=== PATIENT | male | born 1955 | race Caucasian/White ===

== ENCOUNTER → 2021-06-18 15:39 | Outpatient (CLI) | payer MEDICARE, OTHER, SELFPAY ==
--- NOTE | ~2021-06-18 | XR_ITS ---
EXAMINATION: XR toe 2nd RT min 2V DATE: 06/18/2021 16:08 INDICATION: Right toe ulcer at the right second toe TECHNIQUE: Dorsal plantar, lateral andfacet oblique views of the right second toe were obtained. COMPARISON: None FINDINGS: Bone alignment is normal. No fracture. Joint spaces are normal. Ulceration at the lateral tip of the right second toe. No underlying irregular erosion or periosteal reaction to suggest osteomyelitis. IMPRESSION: No osseous abnormality. Reviewed, dictated and finalized at location A. IMPRESSION: No osseous abnormality.
== END ==
PROVIDERS: Visit Provider Podiatrist Foot & Ankle Surgery
DX: L97.519 Non-pressure chronic ulcer of other part of right foot with unspecified severity (principal)
CPT/HCPCS: 73660

== ENCOUNTER 2024-05-10 17:27 | Emergency (ER) | payer MEDICARE, OTHER, SELFPAY ==
[2024-05-10] VITALS (14 sets, daily range): BP systolic 167–194; BP diastolic 74–110; PULSE 99–111; RESP 14–39; TEMP 37.1–38.3; O2SAT 92–98
--- NOTE | ~2024-05-10 | XR_ITS ---
EXAMINATION: XR chest 2V Exam Date/Time: 05/10/2024 21:12 CDT HISTORY: shortness of breath, dizziness, nausea, fever x today Comparison: 07/20/2014. RESULT: Lines, tubes, and devices: Sternotomy wires, altered pattern likely indicative of interval surgery. Several wire fragments remain over the midline chest. Left chest pacer/AICD with intact leads in good position. Lungs and pleura: Mild diffuse interstitial opacities. No pneumothorax, effusion, or focal consolida tion. Cardiomediastinal silhouette: Stable. Other: No acute osseous or upper abdominal finding. IMPRESSION: Mild interstitial edema. Reviewed, dictated and finalized at location K. IMPRESSION: Mild interstitial edema.
[2024-05-10 18:40] LABS: Basophils Absolute Auto 0.1 K/mm3 (0.0-0.1); Basophils Percent Auto 1.2 % (0.2-1.2); Eosinophils Absolute Auto 0.1 K/mm3 (0-0.3); Eosinophils Percent Auto 0.8 % (0-4.4); Hematocrit 51.3 % (42.0-52.0); Hemoglobin 17.6 g/dL (14.0-18.0); Immature Granulocyte Absolute 0.05 K/mm3 (0.00-0.031); Immature Granulocyte Percent A 0.6 % (0-0.5); Lymphocytes Absolute Auto 0.82 K/mm3 (0.9-3.2); Lymphocytes Percent Auto 10.6 % (18.3-44.2); Mean Corpuscular HGB Conc 34.3 g/dl (32-36); Mean Corpuscular Hemoglobin 31.5 pg (26-34); Mean Corpuscular Volume 91.9 fl (80-100); Mean Platelet Volume 9.3 fl (7.4-10.4); Monocytes Absolute Auto 0.8 K/mm3 (0.1-0.6); Monocytes Percent Auto 10.7 % (2.6-8.5); Neutrophils Absolute Auto 5.9 K/mm3 (1.3-6.7); Neutrophils Percent Auto 76.1 % (45.5-73.1); Platelet Count Result 222 k/mm3 (150-375); Red Blood Count 5.58 M/mm3 (4.6-6.20); Red Cell Distribution Width 13.4 % (11.5-14.5); White Blood Count 7.7 K/mm3 (4.5-10.0)
[2024-05-10 18:51] LABS: Alanine Aminotransferase 26 U/L (6-50); Albumin Level 5.4 g/dL (3.5-5.1); Alkaline Phosphatase 34 U/L (38-126); Anion Gap 13 mmol/L (4-12); Aspartate Amino Transferase 39 U/L (17-59); Bilirubin,Total 0.8 mg/dL (0.2-1.3); Blood Urea Nitrogen 13 mg/dL (9-20); Calcium 10.2 mg/dL (8.4-10.2); Carbon Dioxide 25 mmol/L (22-30); Chloride 103 mmol/L (98-107); Estimated CRCL calculation 77 ml/min; Estimated Glomerular Filt Rate > 60; Glucose 130 mg/dL (65-110); Lipase 71 U/L (23-300); Potassium 4.1 mmol/L (3.4-5.0); Sodium 141 mmol/L (137-145)
--- NOTE | 2024-05-10 18:58 | ED.FEVER ---
HPI - Fever General Chief Complaint: Fever Stated Complaint: n/V Time Seen by Provider: 05/10/24 18:53 Related Data Allergies Allergy/AdvReac Type Severity Reaction Status Date / Time No Known Allergies Allergy Unverified 07/20/14 15:43 Course Vital Signs Vital signs: Vital Signs Temperature 99.2 F 05/10/24 17:29 Pulse Rate 104 H 05/10/24 17:29 Respiratory Rate 14 05/10/24 17:29 Blood Pressure 177/98 H 05/10/24 17:29 Pulse Oximetry 94 05/10/24 17:29 Oxygen Delivery Room Air 05/10/24 17:29 Temperature 99.2 F 05/10/24 17:29 Pulse Rate 104 H 05/10/24 17:29 Respiratory Rate 14 05/10/24 17:29 Blood Pressure 177/98 H 05/10/24 17:29 Pulse Oximetry 94 05/10/24 17:29 Oxygen Delivery Room Air 05/10/24 17:29 MDM - Fever Lab Data 05/10/24 18:35 05/10/24 18:35 Labs: Lab Results 05/10/24 Range/Units 18:35 WBC 7.7 (4.5-10.0) K/mm3 RBC 5.58 (4.6-6.20) M/mm3 Hgb 17.6 (14.0-18.0) g/dL Hct 51.3 (42.0-52.0) % MCV 91.9 (80-100) fl MCH 31.5 (26-34) pg MCHC 34.3 (32-36) g/dl RDW 13.4 (11.5-14.5) % Plt Count 222 (150-375) k/mm3 MPV 9.3 (7.4-10.4) fl Immature Gran % (Auto) 0.6 H (0-0.5) % Neut % (Auto) 76.1 H (45.5-73.1) % Lymph % (Auto) 10.6 L (18.3-44.2) % [place] % (Auto) 10.7 H (2.6-8.5) % Eos % (Auto) 0.8 (0-4.4) % Baso % (Auto) 1.2 (0.2-1.2) % Lymph # (Auto) 0.82 L (0.9-3.2) K/mm3 [place] # (Auto) 0.8 H (0.1-0.6) K/mm3 Eos # (Auto) 0.1 (0-0.3) K/mm3 Baso # (Auto) 0.1 (0.0-0.1) K/mm3 Abs Immat Gran (auto) 0.05 H (0.00-0.031) K/mm3 Absolute Neuts (auto) 5.9 (1.3-6.7) K/mm3 Absolute Nucleated RBC 0.000 (0.0-0.012) K/mm3 Nucleated RBC % 0.0 (0.0-0.2) % Sodium 141 (137-145) mmol/L Potassium 4.1 (3.4-5.0) mmol/L Chloride 103 (98-107) mmol/L Carbon Dioxide 25 (22-30) mmol/L Anion Gap 13 H (4-12) mmol/L BUN 13 (9-20) mg/dL Creatinine 1.00 (0.7-1.3) mg/dL Estim Creat Clear Calc 77 ml/min Estimated GFR > 60 (59 - ) Glucose 130 H (65-110) mg/dL Calcium 10.2 (8.4-10.2) mg/dL Total Bilirubin 0.8 (0.2-1.3) mg/dL AST 39 (17-59) U/L ALT 26 (6-50) U/L Alkaline Phosphatase 34 L (38-126) U/L Total Protein 9.0 H (6.3-8.2) g/dL Albumin 5.4 H (3.5-5.1) g/dL Lipase 71 (23-300) U/L Influenza A (RT-PCR) Pending Influenza B (RT-PCR) Pending RSV (RT-PCR) Pending SARS-CoV-2 RNA (RT-PCR) Pending Discharge Plan Discharge Follow-up/Referrals: UNKNOWN,DOCTOR [Primary Care Provider] -
--- NOTE | 2024-05-10 18:59 | ED.GENADULT ---
HPI - General Adult General Chief complaint: Fever Stated complaint: n/V Time Seen by Provider: 05/10/24 18:53 History of Present Illness HPI narrative: Patient is a 69-year-old male with history of coronary artery disease, multiple MIs, most recently in 2019, 2 separate CABGs, Pacemaker and defibrillator in place here with nausea, dry heaves, chills, shortness of breath that began around 2:00 a.m. this morning. Patient notes that he has taken 1 dose of Tylenol this morning but did not take his afternoon dose that he typically takes in addition to not taking any of his afternoon medications. He has been lying around at home having significant chills as well as dry heaves. He denies any chest pain Today. He is an active smoker, denies any inhaler use, does use a CPAP at night. His has been sick with similar symptoms, she works at a hospital and believes her symptoms began 1st and have largely resolved. He notes that he has put on a few extra lbs from his baseline water weight. Denies any abdominal pain or diarrhea. Denies any episodes of vomiting. Related Data Allergies Allergy/AdvReac Type Severity Reaction Status Date / Time No Known Allergies Allergy Unverified 07/20/14 15:43 Review of Systems Review of Systems: All systems reviewed & are unremarkable except as noted in HPI and below Exam Narrative: GENERAL: Well-appearing, well-nourished, and in no acute distress. HEAD: Normocephalic, atraumatic. EYES: PERRLA and EOMI. ENT: Nares clear. Mucous membranes moist. NECK: Supple. CHEST: Bilateral wheeze present, mild tachypnea. HEART: Tachycardic. Normal peripheral pulses. ABDOMEN: Soft, nontender, nondistended. EXTREMITIES: Normal range of motion. No edema. SKIN: Warm, dry, no rash. NEURO: No focal deficits. Alert and oriented x3. PSYCH: Normal mood and affect. Course Course Emergency Course: Chart review performed. Patient here with nausea, dry heaves, chills. Triage vitals shows HTN, Tachycardia, afebrile. No prior visits in our system. Triage protocol lab work and imaging reviewed. CBC shows no leukocytosis. CMP grossly normal with normal electrolytes, normal LFTs. He is COVID positive. Patient seen evaluated, nontoxic appearing. He is COVID positive, has been having symptoms since this morning and his recently had similar symptoms. Will do additional chest x-ray, DuoNeb, antiemetics, a cardiac workup given significant cardiac history. Remainder of lab work and imaging reviewed. Troponin normal. BNP mildly elevated at 1480, no baseline in our system for comparison. He does have a known history of coronary artery disease and heart failure. After breathing treatment patient feeling quite a bit better. Ambulatory trial and patient did not desaturate below 92%. Feels good enough to be discharged home. Will start on Paxlovid. He is unsure of his medication list, advised him to thoroughly go over his medication list with the pharmacy to ensure it is safe to take his medications with paxlovid. The results of pertinent diagnostic studies and exam findings were discussed. The patient?s provisional diagnosis and plan of care were discussed with the patient and present family. The patient and/or present family expressed understanding of the diagnosis and plan. The nurse was instructed to provide written instructions and appropriate follow-up information. The patient understands their need and responsibility to obtain additional follow-up as instructed. The risks of medications administered and prescribed were discussed with the patient and family present. Vital Signs Vital signs: Vital Signs Temperature 99.2 F 05/10/24 17:29 Pulse Rate 104 H 05/10/24 17:29 Respiratory Rate 14 05/10/24 17:29 Blood Pressure 177/98 H 05/10/24 17:29 Pulse Oximetry 94 05/10/24 17:29 Oxygen Delivery Room Air 05/10/24 17:29 Temperature 98.8 F 05/10/24 21:47 Pulse Rate 99 05/10/24 22:00 Respi
[2024-05-10 19:28] LABS: Influenza A QL RT-PCR Negative (Negative); Influenza B QL RT-PCR Negative (Negative); RSV RNA, RT-PCR Negative (Negative); SARS-CoV-2 RNA PCR Positive (Negative)
--- NOTE | 2024-05-10 19:40 | ECG_ITS ---
Test Date: 2024-05-10 19:49:26 Measurements Intervals [place] Rate: 105 P: 42 IN: 190 QRS: -32 QRSD: 141 T: 116 QT: 369 QTc: 488 Interpretive Statements SINUS TACHYCARDIA LEFT AXIS DEVIATION LEFT BUNDLE BRANCH BLOCK ABNORMAL ECG No previous ECG available for comparison Electronically Signed On 05-10-2024 20:35:44 CDT by Zaid Lynn D.O.
[2024-05-10] MEDS: IPRATROPIUM 0.5 MG/ALBUTEROL SULFATE 2.5 MG AMPUL.NEB 3 ML INHALATION (19:55)
[2024-05-10 20:14] LABS: Appearance Urine Clear (Clear); Bacteria Urine None Seen /hpf; Bilirubin Urine Negative (Negative); Blood Urine Trace (Negative); Color Urine Yellow (Yellow); Glucose Urine UA Negative (Negative); Ketones Urine Negative (Negative); Leukocyte Esterase Ur Negative LEU/UL (Negative); Nitrate Urine Negative (Negative); Non Pathogenic Casts 0-2; Protein Urine 1+ mg/dL (Negative); Specific Grav Ur 1.015 (1.001-1.035); Squamous Epithelial Cell Urine None Seen /hpf (Few); Urobilinogen Urine 0.2 mg/dL (<2.0); WBC Urine 0-5 /hpf (0-3)
[2024-05-10] MEDS: PANTOPRAZOLE SODIUM IV 40 MG VIAL IV PUSH (20:17)
[2024-05-10] MEDS: ONDANSETRON INJ 4 MG/2 ML VIAL IV PUSH (20:17)
[2024-05-10] MEDS: ACETAMINOPHEN 500 MG TABLET 1000 MG PO (20:17)
[2024-05-10 20:18] LABS: Add Urine Microscopic? YES
[2024-05-10 20:31] LABS: NT Pro B Type Natriuretic Pept 1480 pg/mL (19.9-100); Troponin I 0.021 ng/mL (0.000-0.034)
== END 2024-05-10 22:44 | disposition home or self-care (01) ==
PROVIDERS: Emergency Medicine; Emergency Provider Student in an Organized Health Care Education/Training Program; PCP Internal Medicine
DX: U07.1 COVID-19 (principal); I25.2 Old myocardial infarction; I25.10 Atherosclerotic heart disease of native coronary artery without angina pectoris; Z95.1 Presence of aortocoronary bypass graft
CPT/HCPCS: 36415; 71046; 80053; 81001; 81003; 83690; 83880; 84484; 85025; 87637; 93005; 94640; 96374; 96375; 99284; A9270; J2405; J2470

== ENCOUNTER 2025-03-24 00:21 | Day surgery (SDC) | payer MEDICARE, OTHER, SELFPAY ==
[2025-03-10 11:19] VITALS: BMI 26.5
--- NOTE | 2025-03-10 11:52 | PC.NURSE ---
Spoke with patient regarding medication Plavix & ASA. Patient verbalizes understanding that the last dose is to be taken on 03/16/2025 and the Endoscopist will instruct them when to restart after the procedure.
--- OUTSIDE RECORDS SUMMARY | 2025-03-24 00:23 | XMS_ITS | Data Portability ---
Author Organization [facility], Main Office Address [address] [place] [address] Care Team Providers Care Human Services Professional Name Role Phone SINCERE ODELL Evidence Specialist HEMALATHA HELM Primary Care Provider YASH SIERRA Incident Response Lead Assessment Encounter Date Assessment Date Assessment LastModified by Organization Details LastModified Time 06/24/2024 06/24/2024 This note is dictated and transcribed by [employer]. [employer] variances may occur. Despite proofreading, typographical errors may occur. Occasional wrong-word or 'dmrod-h-mhut' substitutions may have occurred due to the inherent limitations of voice recording. Read the chart carefully and recognize, using context, where substitutions have occurred. Not available 06/24/2024 10:07:15 09/16/2024 09/16/2024 This note is dictated and transcribed by [employer]. [employer] variances may occur. Despite proofreading, typographical errors may occur. Occasional wrong-word or 'nwpfr-c-zrzr' substitutions may have occurred due to the inherent limitations of voice recording. Read the chart carefully and recognize, using context, where substitutions have occurred. Not available 09/16/2024 14:07:26 02/08/2025 02/08/2025 This note is dictated and transcribed by [employer]. [employer] Sh[employer] variances may occur. Despite proofreading, typographical errors may occur. Occasional wrong-word or 'ysoco-i-flsj' substitutions may have occurred due to the inherent limitations of voice recording. Read the chart carefully and recognize, using context, where substitutions have occurred. Not available 02/08/2025 11:48:02 Plan of Treatment Reminders Order Date Submit Date Provider Last Modified By Organization Details Last Modified Time Details Appointments Any 15 2024 10:00A M Hemalatha Helm MD Not available Not available Not available Establish ed Patient 15 2024 09:30A M Sincere Odell DPM Not available Not available Not available Medicare Wellness 15 2024 11:00A M Hemalatha Helm MD Not available Not available Not available Lab noninvasi ve colorecta l cancer DNA + occult blood screening , QL, stool 2023 024 [facility] (Cologuard Orders Only), [address], [address], [place], [address], 08/14/2024 06:44:52 Referral None recorded. Procedures colonosco py screening (PROC) - Please call patient to schedule. 2024 025 [id number] Sarkis Feliciano MD, [address] [facility] [address], [address], [place], [address], 01/24/2025 08:57:30 Surgeries None recorded. Imaging None recorded. Medication Orders None recorded. Patient TargetsNo targets recorded. Patient Instructions Encounter Date Encounter Id Patient Instructions Last Modified By Organization Details Last Modified Time 07/29/2024 [id number] dementia rating scale-2* Not available 07/29/2024 13:05:31 alcohol misuse* Not available 07/29/2024 13:05:31 depression screening* Not available 07/29/2024 13:05:31 multi-dimensiona l health assessment questionnaire* Not available 07/29/2024 13:05:31 Personalized a lt Plan and Screening Recommendations Advance Directives - Do you have one? No You have indicated that you are capable of preparing your advance care directive Advance Directives - Do we have your advance directive on file in your health record? No, please bring in a copy at your earliest convenience Primary Prevention/Interven tion (prevents or decreases the chance of common diseases from occurring) Smoking Risk: Smoker Refer to attached smoking cessation handouts Refer to attached handouts and prescription will be sent to pharmacy Continue to consider stopping smoking and call if we can assist you Alcohol Misuse Screening: Negative Weight: Appropriate Overwei ght Physical activity: Need more exercise/physical activity minimum of 10-20 minutes of activity that causes mild breathlessness/day Nutrition: Good Average Fall Risk (screened today): Low Vaccines Pneumococcal: Influenza: Your next one in the fall of this year Chronic Disease Risks Stroke: Low Risk Intermediate Risk I have no recommendations Act lazara diagnosis, Continue current treatment plan Heart Attack: Low risk Intermediate Risk I have no recommendations Act lazara diagnosis, Continue current treatment plan Clogging of the Arteries: Low risk Intermediate Risk I have no recommendations Act lazara diagnosis, Continue current treatment plan Diabetes: Low Risk Intermediate Risk Active diagnosis, Continue current treatment plan Secondary Prevention/Interven tion (detects treatable diseases before they may cause symptoms, disability, or ) Prostate Cancer Screening: Colon Cancer Screening: Colonoscopy Fecal Occult Blood Cologuard (DNA stool test) In: Ordered Recomme nded Date Screening Last Performed: Eye Disease Screening: Ordered Recommended today Dementia Risk: Low I have no recommendations Depression Screening: Negative [email or web address] Not available 07/29/2024 11:59:06 Reason for Referral None Reported. Results Created Date Observation Date Name Description Value Unit Range Abnormal Flag Note LastModifiedBy Organization Detail LastModifiedTime 08/10/20 24 08/10/2024 COLOG UARD cologuard result reportable POSITI VE negati ve abnormal POSIT LAZARA TEST RESUL T. A posit lazara Colog uard resul t shoul d be follo wed with a colon oscop y or visua l exami natio n of the colon . The omer l value (refe rence range ) for this assay is negat lazara. TEST DESCR IPTIO N: [place] site algor ithmi c rosamaria sis of stool DNA-b iomar kers with hemog lobin immun oassa y. Quant itati ve value s of indiv idual bioma rkers are not repor table and are not assoc iated with indiv idual bioma rker resul t refer ence range s. Colog uard is inten ded for color ectal cance r scree jessika of adult s of eithe r sex, 45 years or older , who are at [facility] for color ectal cance r (CRC) . Colog uard has been appro toby for use by the U.[place]. FDA. The perfo rmanc e of Colog uard was estab lishe d in a cross secti onal study of [facility] adult s aged 50-84 . Colog uard perfo rmanc e in patie nts ages 45 to 49 years was estim ated by sub-g roup rosamaria sis of near- age group s. Colon oscop ies perfo rmed for a posit lazara resul t may find as the most clini jonathon signi fican t lesio n: color ectal cance r [4.0% ], advan rayray adeno ma (incl uding sessi le jun chele polyp s great er than or equal to 1cm diame ter) [20%] or non- advan rayray adeno ma [31%] ; or no color ectal neopl jolly [45%] . These estim ates are deriv ed from a prosp ectiv e cross -sect ional scree jessika study of 0 indiv idual s at [facility] risk for color ectal cance r who were scree fidelia with both Colog uard and colon oscop y. (Tisha Wang. et al, N Engl J Med 2014; 370(1 4):12 86-12 97.) Colog uard may produ ce a false negat lazara or false posit lazara resul t (no color ectal cance r or preca ncero us polyp prese nt at colon oscop y follo w up). A negat lazara Colog uard test resul t does not guara ntee the absen ce of CRC or advan rayray adeno ma (pre- cance r). The curre nt Colog uard scree jessika inter eddie is every 3 years . (Amer ican Cance r Socie ty and U.S. Multi -Soci ety Task Force ). Colog uard perfo rmanc e data in a 0 patie nt pivot al study using colon oscop y as the refer ence metho d can be acces sed at the follo wing locat ion: www.e xactl abs.c om/re sults . Addit ional descr iptio n of the Colog uard test proce ss, warni ngs and preca ution s can be found at www.belen douglas.belen om. Not Available [facility] (Cologuard Orders Only) [address], [place], [address], 08/14/2024 06:44:52 05/25/20 24 05/25/2024 US, duple x, venou s, lower extre mity No observ ation record ed. BARCODE Not Available 2023 18:13:52 Result Notes None recorded. 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 [id number] 199388 Active 2020 Kassandra lugo RMA null, [facility] 4 10:04:22 Hammer toe 301622141 Active 2021 Kassandra lugo RMA null, [place] [facility] 4 10:03:56 Hammer toe 896462489 Active 2020 Kassandra lugo RMA null, [place] [facility] 4 10:03:54 Acute sinusitis 77326233 Completed 202108/22/2022 Not Available [facility] 3 01:08:08 Callosity on toe 754214099 Completed 202103/29/2024 Sincere Odell DPM [address], [address], [place], [address] , [facility] [employer] [facility] 5 11:48:14 Callosity on toe 195799949 Completed 202108/22/2022 Sincere Odell DPM [address], [address], [place], [address] , [facility] 5 11:48:14 Abdominal pain 83326594 Completed Not Available [facility] 3 01:08:08 Foot callus 135142176 Completed Sincere Odell DPM [address] [facility], [address], [place], [address] , [facility] 4 10:07:20 Intractab le plantar keratoma 335780390 Completed Not Available [facility] 3 01:08:09 Osteomyel itis of ankle AND/OR foot 54021503 Active 2020 Kassandra lugo RMA null, [place] [facility] 4 10:04:32 Swallowin g painful 08689669 Completed Not Available [facility] 3 01:08:09 Hypertrig lyceridem ia 633211620 Active 2017 Kassandra lugo RMA null, [place] [facility] 4 10:04:11 Sinusitis 52504674 Completed Not Available [facility] 3 01:08:09 Periphera l vascular disease 155389028 Active 2020 Kassandra lugo RMA null, [place] [facility] 4 10:04:05 Hypothyro idism 21762454 Active 2021 Kassandra lugo RMA null, [place] [facility] 4 10:04:10 Type 2 diabetes mellitus 57926430 Active Kassandra lugo RMA null, [place] [facility] 4 10:04:27 Cough 07306939 Completed 202108/22/2022 Not Available [facility] 3 01:08:10 Coronary arteriosc lerosis 97909877 Active s/p MS, s/p CABG 2004 Not Available [facility] 3 01:08:10 Hyperlipi demia 01443417 Active Kassandra lugo RMA null, [place] [facility] 4 10:04:13 Nicotine dependenc e 18210263 Active Kassandra lugo, RMA null, [place] [facility] 4 10:04:07 Essential hypertens ion 45205473 Active Kassandra Matias n, RMA null, [place] [facility] 4 10:03:39 Verruca plantaris 62106091 Completed Not Available [facility] 3 01:08:11 Celluliti s of toe 10311884 Completed 202007/19/2021 Not Available [facility] 3 01:08:11 Diabetes mellitus 09447428 Active 2013 Not Available [facility] 3 01:08:11 Sleep apnea 08531731 Active ON CPAP since 2005 Kassandra Almendareza n, RMA null, [place] [facility] 4 10:04:20 Smoker 67091521 Active Kassandra Matias n, RMA null, [facility] 4 10:04:29 Erectile dysfuncti on 753615560 Active 2021 Not Available [facility] 3 01:08:11 Dystrophi a unguium 21418454 Completed 202103/29/2024 Kassandra Mcknightbea n, RMA null, [place] [facility] 4 10:03:59 Skin lesion 31328816 Completed 202103/29/2024 Kassandra Almendareza n, RMA null, [place] [facility] 4 10:04:23 Hammer toe 206252344 Completed 202303/29/2024 Sincere Odell DPM [address], [address], [place], [address] , [facility] 4 10:07:40 Foot callus 349169176 Active 2023 Sincere Odell DPM [address], [address], [place], [address] , [employer] 4 10:07:19 Hammer toe 416698721 Active 2023 Sincere Odell DPM [address], [address], [place], [address] , [employer] [email or web address] 4 10:07:40 Callosity on toe 908780103 Active 2024 Sincere Odell DPM [address], [address], [place], [address] , [employer] 5 11:48:14 Bilateral acquired mallet toe [id number] 032297 Active 2024 Sincere Odell DPM [address], [address], [place], [address] , [employer] [facility] [employer] 5 11:48:39 Diabetic on diet only 755509552 Active 2024 Sincere Odell DPM [address], [address], [place], [address] , [employer] 5 11:49:33 Problem Notes None recorded. Procedures Surgical History Date Name Laterality Status Provider Name and Address Organization Details Recorded Time 02/09/20 25 Nail Debridement completed Sincere Odell DPM [address], [address], [place], [address], [employer] [facility] 02/08/2025 11:47:08 02/09/20 25 Callus Debridement 2-4 completed Sincere Odell DPM [address], [address], [place], [address], [employer] [facility] [facility] 02/08/2025 11:46:14 09/16/20 24 Nail Debridement completed Sincere Odell DPM [address], [address], [place], [address], [employer] [facility] [email or web address] 09/16/2024 11:00:00 09/16/20 24 Callus Debridement 2-4 completed Sincere Odell DPM [address], [address], [place], [address], [facility] 09/16/2024 10:59:51 07/29/20 24 Medicare Wellness CPT Code, subsequent completed Chhaya Jerry RN [facility] 07/29/2024 11:45:44 06/24/20 24 Nail Debridement completed SOCORRO G[address], [place], [address], [facility] 06/24/2024 10:06:52 06/24/20 24 Callus Debridement 2-[address], [place], [address], [facility] 06/24/2024 10:06:46 02/26/20 24 Nail Debridement completed [address], [place], [address], [facility] 02/26/2024 10:05:33 11/27/19 24 Nail Debridement completed SOCORRO [address], [address], [place], [address], [facility] 11/27/2023 10:28:18 11/27/19 24 Callus Debridement 2-4 completed SOCORRO [address], [address], [place], [address], [facility] 11/27/2023 10:28:00 07/22/20 23 Nail Debridement completed SOCOR[address], [address], [place], [address], [facility] 07/22/2023 10:38:04 07/22/20 23 Callus Debridement 2-4 completed SOCORRO [address]arrison, [address], [place], [address], [facility] 07/22/2023 10:38:21 03/18/20 23 Nail Debridement completed SOCORRO G[address], [address], [place], [address], [facility] [employer] [facility] 03/18/2023 10:57:14 03/18/20 23 Callus Debridement 2-4 completed Sincere Odell DPM [address], [place], [address], [facility] [employer] [facility] 03/18/2023 10:56:53 02/07/20 21 other completed Not Available [facility] 3 00:55:45 excision of lesion of breast completed Not Available [facility] 01/08/2023 00:55:45 Rotator cuff surgery completed Not Available [facility] 01/08/2023 00:55:45 CABG completed Not Available [facility] 11/2022 00:55:45 Tonsillectomy completed Not Available [facility] 01/08/2023 00:55:45 Imaging Results Imaging Date Name Status LastModified by Organiz ation Details LastModified Time 05/25/2024 US, duplex, venous, lower extremity completed [employer] Information not available 05/25/2024 18:13:52 Procedure Notes None recorded. Medical Equipment None Reported. Allergies Allergen ID Allergen Name Allergen Category Reaction Reaction Severity Criticality Documentation Date Start Date Code Code System Note Provider Name and Address Organization Details Recorded Time 2366 spironola ctone medicatio n Not available Not available Not available 01/08/2023 9997 RxNorm benig n lumps Not Available [facility] 3 01:25:25 2367 atorvasta tin medicatio n Not available Not available Not available 01/08/2023 30198 RxNorm HYPER GLYCE MALATHI Not Available [facility] 3 01:25:25 Medications Name Sig Start Date Stop Date Status Note LastModified by Organization Details LastModified Time furosemid e 40 mg tablet TAKE 1 TABLET BY MOUTH EVERY DAY active Not Available Not Available No t Available atorvasta tin 40 mg tablet Take 1 tablet every day by oral route. 2013 active Not Available Not Available Not Avai lable metformin 500 mg tablet Take 1 tablet twice a day by oral route. 01/08 completed Not Available Not Available Not Available trazodone 50 mg tablet Take 1 tablet every day by oral route as needed. 06/25 completed Not Available Not Available Not Available azithromy arpita 250 mg tablet TAKE 2 TABLETS BY MOUTH TODAY, THEN TAKE 1 TABLET DAILY FOR 4 DAYS 10/15 completed Not Available Not Available Not Available amiodaron e 200 mg tablet TAKE 1 TABLET BY MOUTH TWICE A DAY active Not Available Not Available No t Available spironola ctone 100 mg tablet TAKE 1 TABLET(S ) EVERY DAY BY ORAL ROUTE. 06/05 completed Not Available Not Available Not Available metoprolo l succinate ER 100 mg tablet,ex tended release 24 hr TAKE 1 TABLET BY MOUTH EVERY DAY active Not Available Not Available No t Available clopidogr el 75 mg tablet TAKE 1 TABLET BY MOUTH EVERY DAY active Not Available Not Available No t Available sulfameth oxazole 800 mg-trimet hoprim 160 mg tablet TAKE 1 TABLET BY MOUTH EVERY 12 HOURS FOR 10 DAYS 10/15 completed Not Available Not Available Not Available fenofibra te micronize d 200 mg capsule TAKE 1 CAPSULE BY MOUTH EVERY DAY active Not Available Not Available No t Available aspirin 81 mg tablet,de layed release TAKE 1 TABLET BY MOUTH EVERY DAY active Not Available Not Available No t Available sildenafi l 100 mg tablet Take 1 tablet every day by oral route as needed. 06/25 completed Not Available Not Available Not Available amoxicill in 500 mg tablet Take 1 tablet 3 times a day by oral route for 7 days. active Not Available Not Available No t Available simvastat in 40 mg tablet TAKE 1 TABLET BY MOUTH EVERY DAY active Not Available Not Available No t Available levothyro xine 25 mcg tablet TAKE 1 TABLET BY MOUTH EVERY DAY 30 MINUTES BEFORE THE FIRST MEAL OF THE DAY ON AN EMPTY STOMACH 06/18 completed Not Available Not Available Not Available levothyro xine 75 mcg tablet TAKE 1 TABLET BY MOUTH EVERY DAY active Not Available Not Available No t Available levothyro xine 100 mcg tablet TAKE 1 TABLET BY MOUTH EVERY DAY active Not Available Not Available No t Available oxycodone -acetamin ophen 5 mg-325 mg tablet active Not Available Not Available Not Available amoxicill in 875 mg tablet Take 1 tablet every 12 hours by oral route for 7 days. active Not Available Not Available No t Available magnesium oxide 400 mg (241.3 mg magnesium ) tablet TAKE 1 TABLET BY MOUTH TWICE A DAY 06/18 completed Not Available Not Available Not Available amiodaron e 400 mg tablet Take 1 tablet twice a day by oral route. 02/[address] Jerry Not Available Not Available Not Available amlodipin e 10 mg tablet TAKE 1 TABLET BY MOUTH EVERY DAY active Not Available Not Available No t Available benzonata te 100 mg capsule 10/15 completed Not Available Not Available Not Available cephalexi n 500 mg capsule TAKE 1 CAPSULE BY MOUTH EVERY 6 HOURS FOR 7 days active Not Available Not Available No t Available simvastat in 20 mg tablet TAKE 1 TABLET(S ) EVERY DAY BY ORAL ROUTE FOR 90 DAYS. 09/02 completed Not Available Not Available Not Available erythromy arpita 5 mg/gram (0.5 %) eye ointment APPLY A SMALL AMOUNT TO RIGHT EYELID 3 TIMES A DAY FOR 5 DAYS. 02/20 completed Not Available Not Available Not Available metformin 1,000 mg tablet Take 1 tablet twice a day by oral route for 90 days. 01/10 completed currentl y not taking. since 08/2015 Not Available Not Available Not Available metoprolo l tartrate 50 mg tablet TAKE 1 TABLET BY MOUTH TWICE A DAY active Not Available Not Available No t Available niacin 500 mg tablet Take 4 tablets every day by oral route at bedtime. 2013 active Not Available Not Available Not Avai lable aspirin 81 mg chewable tablet Chew 1 tablet every day by oral route. active Not Available Not Available No t Available hydrochlo rothiazid e 25 mg tablet TAKE 1 TABLET BY MOUTH EVERY DAY 06/25 completed Not Available Not Available Not Available mupirocin 2 % topical ointment APPLY A SMALL AMOUNT TO THE AFFECTED toe left great toe AREA BY TOPICAL ROUTE 3 TIMES PER DAY 08/22 completed Not Available Not Available Not Available Levaquin 500 mg tablet Take 1 tablet every 24 hours by oral route. active Not Available Not Available No t Available azelastin e 137 mcg (0.1 %) nasal spray SPRAY 2 SPRAYS BY INTRANAS AL ROUTE TWICE A DAY FOR 30 DAYS 11/27 completed Not Available Not Available Not Available Septra DS 800 mg-160 mg tablet 02/19 completed Not Available Not Available Not Available methylpre dnisolone 4 mg tablets in a dose pack take as directed 10/15 completed Not Available Not Available Not Available albuterol sulfate HFA 90 mcg/actua tion aerosol inhaler INHALE 2 PUFFS 4 TIMES A DAY NEEDED FOR SHORTNES S OF BREATH OR FOR WHEEZE 02/08 completed Patient does not use Not Available Not Available Not Available diltiazem 30 mg tablet 06/18 completed Vardi Not Available Not Available Not Available irbesarta n 300 mg tablet TAKE 1 TABLET BY MOUTH EVERY DAY active Not Available Not Available No t Available amoxicill in 875 mg-potass ium clavulana te 125 mg tablet TAKE 1 TABLET BY MOUTH EVERY 12 HOURS FOR 10 DAYS 07/19 completed Not Available Not Available Not Available Asprin Ec Low Dose 81 mg tablet,de layed release Take 1 tablet every day by oral route. 11/27 completed Not Available Not Available Not Available rosuvasta tin 20 mg tablet TAKE 1 TABLET BY MOUTH EVERY DAY 06/24 completed Not Available Not Available Not Available rosuvasta tin 40 mg tablet TAKE 1 TABLET BY MOUTH EVERY DAY active Not Available Not Available No t Available Klor-Con M20 mEq tablet,ex tended release active Not Available Not Available Not Available Fish Oil 11/27 completed Not Available Not Available Not Available BD Ultra-Fin e Short Pen Needle 31 gauge x 5/16 USE QD WITH LANTUS 06/11 completed Not Available Not Available Not Available Januvia 50 mg tablet TK 1 T PO ONCE D 07/29 completed Not Available Not Available Not Available Lantus Solostar U-100 Insulin 100 unit/mL (3 mL) subcutane ous pen INJECT SQ 14 UNITS QHS 08/24 completed Not Available Not Available Not Available fenofibra te 120 mg tablet Take 1 tablet every day by oral route. 01/08 completed Not Available Not Available Not Available B12 11/27 completed Not Available Not Available Not Available Accu-Chek FastClix Lancing Device USE BEFORE MEALS AND AT BEDTIME 06/11 completed Not Available Not Available Not Available Accu-Chek SmartView Test Strips Take 1 strip every day by miscell. route for 30 days. 06/11 completed Not Available Not Available Not Available Eliquis 5 mg tablet TAKE 1 TABLET BY MOUTH TWICE A DAY 06/18 completed Vardi Not Available Not Available Not Available Entresto 24 mg-26 mg tablet 06/18 completed Vardi Not Available Not Available Not Available Paxlovid 300 mg (150 mg x 2)-100 mg tablets in a dose pack TAKE 2 TABLETS (NIRMATR ROSENDO) AND TAKE 1 TABLET (RITONAV IR) BY MOUTH TWICE A DAY FOR 5 DAYS active Not Available Not Available No t Available Vitals Date Recorded Body height Body mass index (BMI) Body weight Heart rate Systolic blood pressure Diastolic blood pressure Provider Name and Address Organization Details Last Updated DateTime 4 193.04 cm 28 kg/m2 399354. 25 g 71 /min 179 mm[Hg] 104 mm[Hg] Yi Steve [facility] [employer] [facility] 4 09:41:27 Date Recorded Body height Body mass index (BMI) Body weight Body temperature Heart rate Oxygen saturation Oxygen saturation in Arterial blood by Pulse oximetry Systolic blood pressure Diastolic blood pressure Provider Name and Address Organization Details Last Updated DateTime 4 193.04 cm 28.2 kg/m2 919404. 43 g 97 [degF] 70 /min 97 % 97 % 150 mm[Hg] 90 mm[Hg] IVANIA Werner [facility] [employer] [facility] 4 09:56:58 Date Recorded Pain severity - 0-10 verbal numeric rating [Score] - Reported Provider Name and Address Organization Details Last Updated DateTime 07/29/2024 0 Chhaya Jerry RN [facility] [employer] [facility] 07/29/2024 11:46:04 Date Recorded Body height Body mass index (BMI) Body weight Heart rate Respiratory rate Oxygen saturation Oxygen saturation in Arterial blood by Pulse oximetry Systolic blood pressure Diastolic blood pressure Provider Name and Address Organization Details Last Updated DateTime 4 193.04 cm 28.2 kg/m2 238161. 43 g 73 /min 14 /min 98 % 98 % 167 mm[Hg] 107 mm[Hg] Fidelina Poe [facility] [employer] [facility] 4 10:12:23 Date Recorded Body weight Body temperature Oxygen saturation Oxygen saturation in Arterial blood by Pulse oximetry Heart rate Systolic blood pressure Diastolic blood pressure Provider Name and Address Organization Details Last Updated DateTime 5 736280. 02 g 74 [degF] 98 % 98 % 72 /min 142 mm[Hg] 68 mm[Hg] Ankita Scott duggan [employer] 5 11:26:53 Date Recorded Body height Body mass index (BMI) Body weight Heart rate Respiratory rate Body temperature Oxygen saturation Oxygen saturation in Arterial blood by Pulse oximetry Systolic blood pressure Diastolic blood pressure Provider Name and Address Organization Details Last Updated DateTime 5 193.04 cm 28.4 kg/m2 590990. 02 g 78 /min 16 /min 98.3 [degF] 97 % 97 % 165 mm[Hg] 98 mm[Hg] Anjelica Cisneros [facility] 5 10:37:07 Social History Question Answer Notes LastModified by Organization Details LastModified Time Tobacco Smoking Status Former Smoker Not Available [employer] 01/08/2023 00:50:46 Do You Have An Advance Directive? No [email or web address] Information not available 07/29/2024 How Many Years Have You Consumed Alcohol? 48 [email or web address] Information not available 07/29/2024 Are You Blind Or Do You Have Difficulty Seeing? No [email or web address] Information not available 07/29/2024 Is Blood Transfusion Acceptable In An Emergency? Yes [email or web address] Information not available 07/29/2024 What Is Your Level Of Caffeine Consumption? Moderate [id number] Information not available 01/08/2023 How Much Tobacco Do You Chew? None [id number] Information not available 01/08/2023 In The 14 Days [id number]|2025-03-24 10:41:15|2025-03-24 10:41:15|[id number]||||"Anes - Initial Pre Proc Eval Procedure: Operation Date: 03/24/25 11:30 Proposed Procedures p Screening Colonoscopy - John Mueller MD Date/Time: 03/24/25 10:41 Surgeon: John Mueller MD Pre Op Diagnosis: Screening Patient Data Age: 70 Gender: M Height: 1.93 m Weight: 99.2 kg Last Vital Signs Temp 36.4 C 03/24/25 10:19 Pulse 74 03/24/25 10:19 Resp 20 03/24/25 10:19 BP 140/82 03/24/25 10:19 Pulse Ox 97 03/24/25 10:19 O2 Del Method Room Air 03/24/25 10:19 Allergies Allergy/AdvReac Type Severity Reaction Status Date / Time trazodone AdvReac lump Verified 03/24/25 10:17 Home Medications Medication Instructions Recorded Confirmed Type albuterol sulfate 90 mcg/actuation 2 puff inhalation QID PRN 05/10/24 03/10/25 Rx aerosol inhaler shortness of breath or wheezing #8.5 grams aspirin 81 mg chewable tablet 81 mg PO DAILY 03/10/25 03/24/25 History clopidogrel 75 mg tablet 75 mg PO DAILY 03/10/25 03/24/25 History coenzyme Q10 100 mg capsule (Co 200 mg PO DAILY 03/10/25 03/24/25 History Q-10) fenofibrate micronized 200 mg 200 mg PO DAILY 03/10/25 03/24/25 History capsule furosemide 40 mg tablet 40 mg PO DAILY 03/10/25 03/24/25 History levothyroxine 100 mcg tablet 100 mcg PO DAILY 03/10/25 03/24/25 History metoprolol tartrate 50 mg tablet 50 mg PO BID 03/10/25 03/24/25 History omega 1-rnr-xey-fish oil 1,000 mg 1 cap PO BID 03/10/25 03/24/25 History (120 mg-180 mg) capsule (Fish Oil) rosuvastatin 40 mg tablet 40 mg PO DAILY 03/10/25 03/24/25 History Patient hx anesthesia problems: none Family hx anesthesia problems: none Results Review: All pre-operative results and documents have been reviewed as part of the pre-operative evaluation. [facility] Past Medical History Medical History (Updated 03/24/25 @ 10:42 by Milton Huffman MD) Pacemaker CAD (coronary artery disease) of artery bypass graft Surgical History Surgical History (Updated 03/24/25 @ 10:42 by Milton Huffman MD) Hx of CABG Social History Social History Years smoked: 57 Smoking status: Current every day smoker Substance use type: does not use Living arrangements: with family Spiritual care concerns: No Anes - Eval Final PreProcedure Day of Procedure 03/24/25 10:41 Patient weight: obese Heart: regular rate and rhythm (paced) Lungs: clear to auscultation Airway: Mallampati scale class II Neurological: alert and oriented Last oral intake: >/= 8 hours ASA classification: IV Emergent: no Anesthetic plan: proceed Anesthesia type and monitoring: general GIVS and standard monitoring Results Review: All pre-operative results and documents have been reviewed as part of the pre-operative evaluation. Informed Consent: The patient's anesthetic plan and its attendant risks and benefits were discussed with the patient/family/POA. Questions were solicited and answers provided to the satisfaction of the patient/family/POA."
--- OUTSIDE RECORDS SUMMARY | 2025-03-24 00:23 | XMS_ITS | Clinical Summary ---
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 [employer] Name Role Phone Tavares Helm MD Primary Care Provider [phone] Genaro Brothers MD Unavailable Nadeem Jerry MD Unavailable [phone] Allergies Active Allergy Reactions Criticality Noted Date Comments Spironolactone Other (See comments) Low 11/16/2020 Developed breast lump Atorvastatin Other (See comments),Unknown Low 11/16/2020 Developed diabetes Medications aspirin 81 mg enteric coated tablet Take 81 mg by mouth daily Active cyanocobalamin (Vitamin B-12) 2,000 mcg tablet Take 6,000 mcg by mouth 2 (two) times a day Active levothyroxine sodium (TIROSINT) 25 mcg capsule Take 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 Indications: diabetes (per pt.) Active alpha lipoic acid 200 mg capsuleIndicati ons:diabetes (per pt.) Take 200 mg by mouth 2 (two) times a day. Indications: diabetes (per pt.) Active clopidogreL (PLAVIX) 75 mg tablet Take 75 mg by mouth daily Active Active Problems Problem Noted Date Diagnosed Date Coronary artery disease invo lving [place] heart without angina pectoris 11/21/2020 Overview (11/21/2020): Added automatically from request for surgery [id number] Surgical History Surgery Date Site/Laterality Comments CORONARY ARTERY BYPASS GRAFT 11/10/2004 - 11/09/2005 5 vessel ROTATOR CUFF REPAIR Left BREAST LUMPECTOMY Left FACIAL SURGERY Left metal in cheekbone VASECTOMY 11/10/1986 - 11/09/1987 HAND SURGERY Right metal removed from hand TONSILLECTOMY CARDIAC PACEMAKER PLACEMENT Left pacemaker/AICD Medical History Medical History Date Comments Hypertension Coronary artery disease Type 2 diabetes mellitus (HCC) d iet controlled Myocardial infarction (HCC) 2004 Awareness under anesthesia durin g oral surgery Sleep apnea Heart attack (HCC) 10/14/2020 Pneumonia X 3 Pleurisy Hypothyroidism Arthritis Family History Medical History Relation Name Comments Heart disease Father Heart disease Mother Heart disease Sister Relation Name Status Comments Father Mother Sister Alive Social History Tobacco Use Types Packs/Day Years Used Date Smoking Tobacco: Every Day Cigarettes Smokeless Tobacco: Never Alcohol Use Standard Drinks/Week Comments Not Currently 0 (1 standard drink = 0.6 oz pur e alcohol) Sex and Gender Information Value Date Recorded Sex Assigned at Not on file 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 Gender Identity Not on file Sexual Orientation Not on file Obstetrics History Last Filed Vital Signs Vital Sign Reading Time Taken Comments Blood Pressure 140/76 04/19/2021 12:28 PM CDT Pulse 78 04/19/2021 12:28 PM CDT Temperature 36.6 C (97.9 F) 01/11/2021 12:56 PM 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 Respiratory Rate 16 04/19/2021 12:28 PM CDT Oxygen Saturation 98% 04/19/2021 12:28 PM CDT Inhaled Oxygen Concentration - - Weight 111.6 kg (246 lb) 04/19/2021 12:28 PM CDT Height 185.4 cm (6' 1 ) 04/19/2021 12:28 PM CDT Body Mass Index 32.46 04/19/2021 12:28 PM CDT Plan of Treatment Health Maintenance Due Date Last Done Comments Colon Cancer Screening-Colonoscopy 1955 Depression Screening 1955 Hepatitis C Screening 1955 Prostate Cancer Screening-PSA 1955 DTaP/Tdap/Td Vaccine (1 - Tdap) 02/10/1967 Hepatitis B Screening 02/10/1974 Pneumococcal vaccine 65+ (1 of 2 - PCV) 02/10/1975 Zoster Vaccine (1 of 2) 02/10/2006 Abdominal Aortic Aneurysm (AAA) Screen 02/10/2021 Well Visit 65+ 02/10/2021 Fall Risk Assessment 12/12/2021 12/12/2020 Influenza Vaccine (Season Ended) 2025 09/08/20 21, 10/19/2020 Medical Devices Implanted Type Area Auto Inspector Device Identifier Shelf Expiration Date Model / Serial / Lot Icd-10/17/2020 Implanted:Qty: 1 on 10/17/2020 ICD Left: Chest Insurance CHOICE PLUS CHOICE PLUS MEDIC[employer] Advance Directives For more information, please contact: [phone] * Full Code (Latest Code Status on File) Date Activated Date Inactivated Comments 12/04/2020 5:33 PM 12/12/2020 4:23 PM Care Teams L[employer]ator [employer] Relationship Specialty Start Date End Date Tavares Helm MD PCP - General Internal Medicine 10/30/20 Genaro Brothers MD Consulting Physician Cardiovascular Disease 12/12/20 Nadeem Jerry MD Surgeon Cardiothoracic Surgery 12/12/20
--- OUTSIDE RECORDS SUMMARY | 2025-03-24 00:23 | XMS_ITS | Clinical Summary ---
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 Name Role Phone Unavailable Primary Care Provider Unavailabl e Social History Tobacco Use Types Packs/Day Years Used Date Smoking Tobacco: Never Assessed Sex and Gender Information Value Date Recorded Sex Assigned at Not on file Legal Sex Male 5:44 PM CDT Gender Identity Not on file Sexual Orientation Not on file Plan of Treatment Health Maintenance Due Date Last Done Comments Colorectal Cancer Screening Colonoscopy (10 Years) 1955 Hepatitis C 02/10/1974 DTaP, Tdap and Td Vaccines ( 1 - Tdap) 02/10/1975 Pneumococcal Vaccine: 50+ Ye ars (1 of 1 - PCV) 02/10/2006 Zoster Vaccines (1 of 2) 02/10/2006 COVID-19 Vaccine ( - 2023-2 5 season) 2024 RSV Immunization or 60+ Years (1 - 1-dose 75+ series) 02/10/2031 Meningococcal B Vaccine Aged Out No l onger eligible based on patient's age to complete this topic Meningococcal Vaccine Aged Out No christel leonidas eligible based on patient's age to complete this topic RSV Immunizations Under 20 Months Aged Out No longer eligible based on patient's age to complete this topic
--- OUTSIDE RECORDS SUMMARY | 2025-03-24 00:24 | XMS_ITS | CONTINUITY OF CARE DOCUMENT ---
Author Name susanne skinner Address Unknown Organization [facility] Address [address] [place] [address] Phone [phone] Care Team Providers Care Inventory Taker Name Role Phone Genaro Brothers MD Unavailable [phone] Tavares Helm MD Unavailable Tavares Helm MD Unavailable PROBLEMS Condition Status Date Provider Notes Hypertension active Genaro Brothers MD Hypercholesterolemia active Miguel Blanco erg Tobacco abuse active Genaro Brothers MD CAD S/P CABG x5 01/2005, red o CABG x3 11/2020 active Miguel Mckeon Fatigue completed - Miguel Mckeon Leg pain active Miguel Mckeon Sleep apnea active Miguel Mckeon Bradycardia active Genaro Brothers MD Abdominal aortic ectasia - 02/2016 DUPLEX 2.7 CM active Miguel Mckeon S/P CABG x5 (BRICE-LAD, SVG-OM1-OM2, SVG-PDA) 2004, S/P redo CABG x3 (radial-diagonal, SVG-OM, SVG-PDA) 2020 active Miguel Mckeon Dual AICD - Biotronik (MRI SAFE) active Kylah Mckeon Cardiac arrest 10/15/20 active Miguel jones Current long-term use of Amiodarone completed - Miguel Mckeon Diabetes mellitus active Miguel Mckeon Hypothyroidism active Miguel Mckeon Screening - negative COVID-1 9 swab 01/2021 active Miguel Mckeon Atrial flutter (post redo CA BG only) active Miguel Mckeon Left renal artery stenosis S /P stent 01/2021 active Miguel Mckeon Cardiomyopathy - CATH EF 40% 10/2020 - EF 50% by TTE 01/2021 active Miguel rabago Congestive Heart Failure active Tajoseon Chon COVID-19 vaccination active Miguel Blanco erg Peripheral edema active Miguel Mckeon Claudication active Miguel Mckeon Ulcer of distal RLE active Miguel Quiroz rg PAD active Sherly Fisher Cardiology examination active Genaro Terry ENCOUNTERS Date Type Provider Location Encounter Diag nosis - In-person encounter Office Visit Genaro Brothers MD [facility] - In-person encounter Office Visit Genaro Brothers MD [facility] Cardiology examination - In-person encounter Office Visit Genaro Brothers MD [facility] - In-person encounter Office Visit Genaro Brothers MD [facility] - In-person encounter Office Visit Genaro Brothers MD [facility] - In-person encounter Office Visit Genaro Brothers MD [facility] - In-person encounter Office Visit Genaro Brothers MD [facility] - In-person encounter Office Visit Genaro Brothers MD [facility] - In-person encounter Office Visit Genaro Brothers MD [facility] PAD - In-person encounter Office Visit Genaro Brothers MD [facility] Peripheral edemaClaudicationUlcer of distal RLE - In-person encounter Office Visit Genaro Brothers MD [facility] Current long-term use of AmiodaroneScreening - negative COVID-19 swab eft renal artery stenosis S/P stent ardiomyopathy - CATH EF 40% 10/2020 - EF 50% by TTE OVID-19 vaccination - In-person encounter Office Visit Anitha Oliver MD [facility] Congestive Heart Failure - In-person encounter Office Visit Genaro Brothers MD [facility] HypercholesterolemiaCAD S/P CABG x5 01/2005, redo CABG x3 /P CABG x5 (BRICE-LAD, SVG-OM1-OM2, SVG-PDA) 2004, S/P redo CABG x3 (radial-diagonal, SVG-OM, SVG-PDA) ual AICD - Biotronik (MRI SAFE)Cardiac arrest 10/15/20Diabetes mellitusHypothyroidismScreening - negative COVID-19 swab trial flutter (post redo CABG only)Left renal artery stenosis S/P stent ardiomyopathy - CATH EF 40% 10/2020 - EF 50% by TTE 01/2021 - In-person encounter Office Visit Priya Busby MD [facility] - In-person encounter Office Visit Priya Busby MD [facility] Cardiac arrest 10/15/20 - In-person encounter Office Visit Genaro Brothers MD [facility] Fatigue - In-person encounter Office Visit Genaro Brothers MD [facility] CAD S/P CABG x5 01/2005, redo CABG x3 bdominal aortic ectasia - 02/2016 DUPLEX 2.7 CMS/P CABG x5 (BRICE-LAD, SVG-OM1-OM2, SVG-PDA) 2004, S/P redo CABG x3 (radial-diagonal, SVG-OM, SVG-PDA) 2020 - In-person encounter Office Visit Genaro Brothers MD [facility] - In-person encounter Office Visit Genaro Brothers MD [facility] Bradycardia - In-person encounter Office Visit Genaro Brothers MD [facility] HypertensionHypercholesterolemiaTobacco abuseCAD S/P CABG x5 01/2005, redo CABG x3 1Leg painSleep apnea VITAL SIGNS Date Observation Value Provider Body Mass Index (Ratio) 26.78 kg/m2 Jair Mulligan blood pressure, diastolic 98 mm[Hg] Jose tony Barber blood pressure, systolic 147 mm[Hg] Xochitl parktran Barber pulse rate 73 /min María Turner s oxygen saturation, oximetry 97 % María Barber weight E&M 220 [lb_av] María Turner s blood pressure, cuff size regular Br tony Barber height E&M 76 [in_i] María Turner s Body Mass Index (Ratio) 28.36 kg/m2 Genaro Brothers MD oxygen saturation, oximetry 96 % Donna Wooten pulse rate 82 /min Donna Wooten blood pressure, cuff size regular Ta bitdinesh Wooten blood pressure, diastolic 88 mm[Hg] Ta bitha Wooten blood pressure, systolic 144 mm[Hg] Tab itha Wooten weight E&M 233 [lb_av] Donna Wooten respiratory rate E&M 12 /min Donna Wooten height E&M 76 [in_i] Donna Wooten Body Mass Index (Ratio) 28.85 kg/m2 Bogdan as Maximino blood pressure, cuff size regular Ja rret blood pressure, diastolic 96 mm[Hg] Ja rret blood pressure, systolic 181 mm[Hg] Jar ret pulse rate 62 /min Wes y oxygen saturation, oximetry 98 % Wes respiratory rate E&M 14 /min Wes weight E&M 237 [lb_av] Wes y height E&M 76 [in_i] Wes y Body Mass Index (Ratio) 29.09 kg/m2 Mona andrew Fisher blood pressure, cuff size regular Ke rri Gruenenfelder blood pressure, diastolic 90 mm[Hg] Ke rri Gruenenfelder blood pressure, systolic 162 mm[Hg] Curly dennis Rodriguezer oxygen saturation, oximetry 96 % Irina Kelly respiratory rate E&M 12 /min Irina louis pulse rate 72 /min Irina Cira lder weight E&M 239 [lb_av] Irina Sebastiane lder height E&M 76 [in_i] Irina Sumeetnenfe er Body Mass Index (Ratio) 28.97 kg/m2 Mona Fisher blood pressure, diastolic 99 mm[Hg] Li nkLogic blood pressure, systolic 155 mm[Hg] Miguelina kLogareli blood pressure, diastolic 99 mm[Hg] Helga Kenny blood pressure, systolic 155 mm[Hg] Ward Kenny oxygen saturation, oximetry 96 % Halie Kenny respiratory rate E&M 18 /min Halie Kenny pulse rate 61 /min Halie Efraín weight E&M 238 [lb_av] Halie Kenny height E&M 76 [in_i] Halie Kenny Body Mass Index (Ratio) 29.09 kg/m2 Mona morales Phillip oxygen saturation, oximetry 98 % Tracey Keane respiratory rate E&M 15 /min Tracey Pi joi weight E&M 239 [lb_av] Traceydebra Keane Body Mass Index (Ratio) 29.70 kg/m2 Genaro Brothers MD blood pressure, cuff size large [facility] blood pressure, diastolic 90 mm[Hg] [facility], systolic 150 mm[Hg] [facility] oxygen saturation, oximetry 96 % Pao Leal respiratory rate E&M 16 /min Ania mayfield Leal pulse rate 86 /min Pao terry weight E&M 244 [lb_av] Pao terry height E&M 76 [in_i] Pao terry Body Mass Index (Ratio) 31.89 kg/m2 Mona andrew Fisher blood pressure, diastolic 90 mm[Hg] Ma rsha O'Ender blood pressure, systolic 140 mm[Hg] Mar sha O'Ender blood pressure, resting Yes [place] montiel O'Ender oxygen saturation, oximetry 97 % Elena O'Ender respiratory rate E&M 16 /min Elena O'Ender pulse rate 64 /min Elena O'Ender weight E&M 262 [lb_av] Elena O'Ender height E&M 76 [in_i] Elena O'Ender Body Mass Index (Ratio) 31.28 kg/m2 Mona Fisher blood pressure, diastolic 87 mm[Hg] Pepe Kessler blood pressure, systolic 137 mm[Hg] Kim Kessler pulse rate 87 /min Denis villa oxygen saturation, oximetry 97 % Denis Kessler respiratory rate E&M 18 /min Tianna Kessler weight E&M 257 [lb_av] Denis Meade villa height E&M 76 [in_i] Denis Meade villa Body Mass Index (Ratio) 30.06 kg/m2 Wilner Mckeon blood pressure, diastolic 93 mm[Hg] astity Kings blood pressure, systolic 165 mm[Hg] Lisa stity Kings oxygen saturation, oximetry 98 % Chastity Kings pulse rate 75 /min Chastity Kings respiratory rate E&M 16 /min Chastit y Kings weight E&M 247 [lb_av] Chastity Kings height E&M 76 [in_i] Chastity Kings Body Mass Index (Ratio) 28.85 kg/m2 Wilner Mckeon blood pressure, cuff size regular Cy ntcassandra Head blood pressure, diastolic 74 mm[Hg] Cy ntelioa Sonido blood pressure, systolic 128 mm[Hg] Janine chika Head oxygen saturation, oximetry 96 % Latoya Head pulse rate 70 /min Latoya Valentínbel l respiratory rate E&M 16 /min Latoyachika Head weight E&M 237 [lb_av] Latoya Campbel l height E&M 76 [in_i] Latoya Campbel l Body Mass Index (Ratio) 29.09 kg/m2 Katerin Givens oxygen saturation, oximetry 97 % Latoya Head pulse rate 83 /min Latoya dougherty blood pressure, cuff size regular Cy blanquita Head blood pressure, diastolic 80 mm[Hg] Martinez Head blood pressure, systolic 140 mm[Hg] Janine Head respiratory rate E&M 16 /min Latoya Head weight E&M 239 [lb_av] Latoya dougherty height E&M 76 [in_i] Latoya dougherty Body Mass Index (Ratio) 29.58 kg/m2 Wilner Castroberg blood pressure, diastolic 96 mm[Hg] Martinez Head blood pressure, systolic 164 mm[Hg] Janine Head weight E&M 243 [lb_av] Latoya dougherty blood pressure, cuff size regular Martinez Head respiratory rate E&M 16 /min Latoya Head pulse rate 75 /min Latoya dougherty oxygen saturation, oximetry 97 % Latoya Head height E&M 76 [in_i] Latoya dougherty Body Mass Index (Ratio) 29.06 kg/m2 Zak Bishop blood pressure, diastolic 70 mm[Hg] Kenyetta Madrid blood pressure, systolic 116 mm[Hg] Gris Madrid oxygen saturation, oximetry 96 % Joycelyn Madrid respiratory rate E&M 16 /min Lora Madrid pulse rate 62 /min Joycelyn cook weight E&M 238.8 [lb_av] Joycelyn adams height E&M 76 [in_i] Joycelyn cook Body Mass Index (Ratio) 28.85 kg/m2 Wilner Mckeon blood pressure, diastolic, left arm 85 mm [Hg] [facility] blood pressure, systolic, left arm 165 mm [Hg] [facility] blood pressure, diastolic, right arm 85 m m[Hg] [facility] blood pressure, systolic, right arm 164 m m[Hg] [facility] temperature E&M 98.6 [degF] [facility] temperature site temporal [facility] respiratory rate E&M 16 /min [facility] blood pressure, diastolic 85 mm[Hg] To [facility] blood pressure, systolic 164 mm[Hg] Ton [facility] pulse rate 65 /min [facility] oxygen saturation, oximetry 98 % [facility] weight E&M 237 [lb_av] [facility] height E&M 76 [in_i] [facility] Body Mass Index (Ratio) 29.09 kg/m2 Wilner Mckeon blood pressure, cuff size regular Cy evacassandra Head blood pressure, diastolic 70 mm[Hg] Cy blanquita Head blood pressure, systolic 132 mm[Hg] Janine tanishalyn Head oxygen saturation, oximetry 98 % Latoya Head respiratory rate E&M 16 /min Latoyachika Head pulse rate 63 /min Latoya Valentínbel l weight E&M 239 [lb_av] Latoya Campbel l height E&M 76 [in_i] Latoya Campbel l Body Mass Index (Ratio) 29.09 kg/m2 Wilner Mckeon blood pressure, cuff size regular Ke rri Leticia blood pressure, diastolic 88 mm[Hg] Ke rri Leticia blood pressure, systolic 138 mm[Hg] Curly Kelly oxygen saturation, oximetry 97 % Irina Kelly respiratory rate E&M 20 /min Irina sanchezdominicck pulse rate 73 /min Irina Denis lder weight E&M 239 [lb_av] Irina Denis lder height E&M 76 [in_i] Irina Denis er Body Mass Index (Ratio) 29.87 kg/m2 Ruddy Plataray blood pressure, resting Yes Genaro Brothers MD blood pressure, diastolic 88 mm[Hg] Kenyetta Madrid blood pressure, systolic 149 mm[Hg] Gris Madrid oxygen saturation, oximetry 98 % Joycelyn Madrid respiratory rate E&M 18 /min Lora Madrid pulse rate 64 /min Joycelyn cook weight E&M 245.4 [lb_av] Joycelyn adams height E&M 76 [in_i] Joycelyn cook blood pressure, diastolic 90 mm[Hg] Kenyetta Madrid blood pressure, systolic 157 mm[Hg] Gris Madrid pulse rate 58 /min Joycelyn cook oxygen saturation, oximetry 97 % Joycelyn Madrid respiratory rate E&M 16 /min Lora Madrid Body Mass Index (Ratio) 29.16 kg/m2 Sri Madrid weight E&M 239.6 [lb_av] Joycelyn adams height E&M 76 [in_i] Joycelyn cook ALLERGIES Allergy Name Onset Date Reaction Criticality Status SPIRONOLACTONE Low Criticality activ e LIPITOR High Criticality active RESULTS Date Observation Value Provider Reference Range Interpretation Location pro brain natriuretic peptide 753 pg/mL Link[facility] 0-376 High lipoprotein, beta, serum, point, quantitative, calculated 75 mg/dL [facility] 0-99 HDL cholesterol, serum 27 mg/dL [facility] >39 Low triglyceride, serum, random 207 mg/dL [facility] 0-149 High cholesterol, serum 137 mg/dL [facility] [phone]/08/ 16 alanine aminotransferase (SGPT), serum 17 1/L [facility] 0-44 aspartate aminotransferase (SGOT), serum 22 1/L [facility] 0-40 alkaline phosphatase, serum 26 1/L [facility] 44-121 Low bilirubin, serum, total 0.5 mg/dL [facility] 0.0-1.2 globulin, serum 3.0 [facility] 1.5-4.5 albumin, serum 4.7 g/dL [facility] 3.9-4.9 protein, total, serum 7.7 g/dL [facility] 6.0-8.5 calcium, serum 10.0 mg/dL [facility] 8.6-10.2 carbon dioxide, venous blood 24 mmol/L [facility] 20-29 chloride, serum 103 mmol/L [facility] 96-106 potassium, serum 4.9 mmol/L [facility] 3.5-5.2 sodium, serum 142 mmol/L [facility] 656-607 4476/08/ 16 urea nitrogen/creatinine ratio, serum 14 [facility] 10-24 creatinine, serum 1.05 mg/dL [facility] 0.76-1.27 urea nitrogen, blood 15 mg/dL [facility] 8-27 blood glucose, random 126 mg/dL [facility] 70-99 High pro brain natriuretic peptide 408 pg/mL [facility] 0-376 High free thyroxine index 2.4 [facility] 1.2-4.9 triiodothyronine resin uptake 28 % [facility] 24-39 thyroxine, serum, total 8.5 ug/dL [facility] 4.5-12.0 thyroid stimulating hormone, serum 1.980 u[IU]/mL [facility] 0.450-4.500 hemoglobin A1C, blood, as % of total hemoglobin 6.3 % [facility] 4.8-5.6 High lipoprotein, beta, serum, point, quantitative, calculated 92 mg/dL [facility] 0-99 HDL cholesterol, serum 24 mg/dL [facility] >39 Low triglyceride, serum, random 251 mg/dL [facility] 0-149 High cholesterol, serum 159 mg/dL [facility] 061-105 8901/11/ 18 alanine aminotransferase (SGPT), serum 19 1/L [facility] 0-44 aspartate aminotransferase (SGOT), serum 21 1/L [facility] 0-40 alkaline phosphatase, serum 29 1/L [facility] 44-121 Low bilirubin, serum, total 0.5 mg/dL [facility] 0.0-1.2 albumin/globulin ratio, serum 1.9 [facility] 1.2-2.2 globulin, serum 2.5 [facility] 1.5-4.5 albumin, serum 4.7 g/dL [facility] 3.8-4.8 protein, total, serum 7.2 g/dL [facility] 6.0-8.5 calcium, serum 9.7 mg/dL [facility] 8.6-10.2 carbon dioxide, venous blood 22 mmol/L [facility] 20-29 chloride, serum 101 mmol/L [facility] 96-106 potassium, serum 4.9 mmol/L [facility] 3.5-5.2 sodium, serum 139 mmol/L [facility] 210-460 6832/11/ 18 urea nitrogen/creatinine ratio, serum 19 [facility] 10-24 creatinine, serum 1.08 mg/dL [facility] 0.76-1.27 urea nitrogen, blood 20 mg/dL [facility] 8-27 blood glucose, random 119 mg/dL [facility] 70-99 High pro brain natriuretic peptide 295 pg/mL [facility] 0-376 hemoglobin A1C, blood, as % of total hemoglobin 6.9 % [facility] 4.8-5.6 High prothrombin time (patient) 10.6 s [facility] 9.1-12.0 international normalized ratio (INR) 1.0 [facility] 0.9-1.2 free thyroxine index 1.6 [facility] 1.2-4.9 triiodothyronine resin uptake 27 % [facility] 24-39 thyroxine, serum, total 6.0 ug/dL [facility] 4.5-12.0 thyroid stimulating hormone, serum 21.500 u[IU]/mL [facility] 0.450-4.500 High calcium, serum 9.7 mg/dL [facility] 8.6-10.2 carbon dioxide, venous blood 23 mmol/L [facility] 20-29 chloride, serum 102 mmol/L [facility] 96-106 potassium, serum 4.8 mmol/L [facility] 3.5-5.2 sodium, serum 139 mmol/L [facility] 637-176 6861/07/ 22 urea nitrogen/creatinine ratio, serum 18 [facility] 10-24 eGFR if 88 mL/min/{1 .73_m2} [facility] >59 eGFR if not 76 mL/min/{1 .73_m2} [facility] >59 creatinine, serum 1.03 mg/dL [facility] 0.76-1.27 urea nitrogen, blood 19 mg/dL [facility] 8-27 blood glucose, random 181 mg/dL [facility] 65-99 High basophil count, absolute 0.1 x10E3/uL [facility] 0.0-0.2 Eosinophil Absolute Count 0.6 X10E3/UL [facility] 0.0-0.4 High monocyte count, blood, automated 0.9 X10E3/UL [facility] 0.1-0.9 lymphocyte count, blood, automated 2.3 X10E3/UL [facility] 0.7-3.1 Absolute Neutrophils 4.2 X10E3/UL [facility] 1.4-7.0 basophils as percent of blood leukocytes 2 % [facility] Not Estab. eosinophils as percent of blood leukocytes 7 % [facility] Not Estab. monocytes as percent of blood leukocytes 11 % [facility] Not Estab. lymphocytes as percent of blood leukocytes 28 % [facility] Not Estab. neutrophils as percent of blood leukocytes 51 % [facility] Not Estab. platelet count 271 X10E3/UL [facility] 902-134 1444/07/ 22 red blood cell distribution width 15.6 % [facility] 11.6-15.4 High mean corpuscular hemoglobin concentration, RBC 32.8 G/DL [facility] 31.5-35.7 mean corpuscular hemoglobin, RBC 29.7 pg [facility] 26.6-33.0 mean corpuscular volume, RBC 91 fL [facility] 79-97 hematocrit, blood 41.8 % [facility] 37.5-51.0 hemoglobin, blood 13.7 g/dL [facility] 13.0-17.7 erythrocyte (RBC) count 4.61 X10E6/UL [facility] 4.14-5.80 leukocyte count, blood 8.2 X10E3/UL [facility] 3.4-10.8 free thyroxine index 1.4 [facility] 1.2-4.9 triiodothyronine resin uptake 25 % [facility] 24-39 thyroxine, serum, total 5.4 ug/dL [facility] 4.5-12.0 thyroid stimulating hormone, serum 35.300 u[IU]/mL [facility] 0.450-4.500 High pro brain natriuretic peptide 384 pg/mL [facility] 0-376 High hemoglobin A1C, blood, as % of total hemoglobin 7.2 % [facility] 4.8-5.6 High lipoprotein, beta, serum, point, quantitative, calculated 99 mg/dL [facility] 0-99 HDL cholesterol, serum 32 mg/dL [facility] >39 Low triglyceride, serum, random 189 mg/dL [facility] 0-149 High cholesterol, serum 164 mg/dL [facility] 559-565 0275/06/ 03 basophil count, absolute 0.2 x10E3/uL [facility] 0.0-0.2 Eosinophil Absolute Count 0.5 X10E3/UL [facility] 0.0-0.4 High monocyte count, blood, automated 0.9 X10E3/UL [facility] 0.1-0.9 lymphocyte count, blood, automated 2.3 X10E3/UL [facility] 0.7-3.1 Absolute Neutrophils 4.1 X10E3/UL [facility] 1.4-7.0 basophils as percent of blood leukocytes 2 % [facility] Not Estab. eosinophils as percent of blood leukocytes 6 % [facility] Not Estab. monocytes as percent of blood leukocytes 11 % [facility] Not Estab. lymphocytes as percent of blood leukocytes 29 % [facility] Not Estab. neutrophils as percent of blood leukocytes 51 % [facility] Not Estab. platelet count 297 X10E3/UL [facility] 136-009 4344/06/ 03 red blood cell distribution width 17.0 % [facility] 11.6-15.4 High mean corpuscular hemoglobin concentration, RBC 33.3 G/DL [facility] 31.5-35.7 mean corpuscular hemoglobin, RBC 28.0 pg [facility] 26.6-33.0 mean corpuscular volume, RBC 84 fL [facility] 79-97 hematocrit, blood 43.9 % [facility] 37.5-51.0 hemoglobin, blood 14.6 g/dL [facility] 13.0-17.7 erythrocyte (RBC) count 5.21 X10E6/UL [facility] 4.14-5.80 leukocyte count, blood 7.9 X10E3/UL [facility] 3.4-10.8 alanine aminotransferase (SGPT), serum 20 1/L [facility] 0-44 aspartate aminotransferase (SGOT), serum 27 1/L [facility] 0-40 alkaline phosphatase, serum 28 1/L [facility] 48-121 Low bilirubin, serum, total 0.4 mg/dL [facility] 0.0-1.2 albumin/globulin ratio, serum 1.6 [facility] 1.2-2.2 globulin, serum 3.0 [facility] 1.5-4.5 albumin, serum 4.7 g/dL [facility] 3.8-4.8 protein, total, serum 7.7 g/dL [facility] 6.0-8.5 calcium, serum 9.5 mg/dL [facility] 8.6-10.2 carbon dioxide, venous blood 24 mmol/L [facility] 20-29 chloride, serum 101 mmol/L [facility] 96-106 potassium, serum 4.7 mmol/L [facility] 3.5-5.2 sodium, serum 140 mmol/L [facility] 335-227 3771/06/ 03 urea nitrogen/creatinine ratio, serum 16 [facility] 10-24 eGFR if 75 mL/min/{1 .73_m2} [facility] >59 eGFR if not 65 mL/min/{1 .73_m2} [facility] >59 creatinine, serum 1.17 mg/dL [facility] 0.76-1.27 urea nitrogen, blood 19 mg/dL [facility] 8-27 blood glucose, random 148 mg/dL [facility] 65-99 High hemoglobin A1C, blood, as % of total hemoglobin 6.3 % [facility] prothrombin time (patient) 10.9 s [facility] 9.1-12.0 international normalized ratio (INR) 1.0 [facility] 0.9-1.2 lipoprotein, beta, serum, point, quantitative, calculated 97 mg/dL [facility] 0-99 HDL cholesterol, serum 38 mg/dL [facility] >39 Low triglyceride, serum, random 159 mg/dL [facility] 0-149 High cholesterol, serum 163 mg/dL [facility] 199-136 0487/03/ 11 calcium, serum 10.0 mg/dL [facility] 8.6-10.2 carbon dioxide, venous blood 20 mmol/L [facility] 20-29 chloride, serum 104 mmol/L [facility] 96-106 potassium, serum 4.9 mmol/L [facility] 3.5-5.2 sodium, serum 141 mmol/L [facility] 321-465 9707/03/ 11 urea nitrogen/creatinine ratio, serum 18 [facility] 10-24 eGFR if 80 mL/min/{1 .73_m2} [facility] >59 eGFR if not 69 mL/min/{1 .73_m2} [facility] >59 creatinine, serum 1.12 mg/dL [facility] 0.76-1.27 urea nitrogen, blood 20 mg/dL [facility] 8-27 blood glucose, random 132 mg/dL [facility] 65-99 High basophil count, absolute 0.2 x10E3/uL [facility] 0.0-0.2 Eosinophil Absolute Count 0.6 X10E3/UL [facility] 0.0-0.4 High monocyte count, blood, automated 0.8 X10E3/UL [facility] 0.1-0.9 lymphocyte count, blood, automated 2.0 X10E3/UL [facility] 0.7-3.1 Absolute Neutrophils 5.6 X10E3/UL [facility] 1.4-7.0 basophils as percent of blood leukocytes 2 % [facility] Not Estab. eosinophils as percent of blood leukocytes 6 % [facility] Not Estab. monocytes as percent of blood leukocytes 9 % [facility] Not Estab. lymphocytes as percent of blood leukocytes 22 % [facility] Not Estab. neutrophils as percent of blood leukocytes 60 % [facility] Not Estab. platelet count 308 X10E3/UL [facility] 435-353 0188/03/ 11 red blood cell distribution width 13.9 % [facility] 11.6-15.4 mean corpuscular hemoglobin concentration, RBC 31.5 G/DL [facility] 31.5-35.7 mean corpuscular hemoglobin, RBC 29.5 pg [facility] 26.6-33.0 mean corpuscular volume, RBC 94 fL [facility] 79-97 hematocrit, blood 40.6 % [facility] 37.5-51.0 hemoglobin, blood 12.8 g/dL [facility] 13.0-17.7 Low erythrocyte (RBC) count 4.34 X10E6/UL [facility] 4.14-5.80 leukocyte count, blood 9.3 X10E3/UL [facility] 3.4-10.8 thyroid stimulating hormone, serum 17.300 u[IU]/mL [facility] 0.450-4.500 High [id number]|2025-03-24 00:24:00|2025-03-24 00:24:00|XMS_ITS|BKG DAEMON|External Medical Summaries|[id number]|" Referral Summary Created on: March 24, 2025 Zane Kash Felipe : 1955 Sex: Male Author Organization [facility] [address] [place] [id number] Care Team Providers Care Inventory Taker Name Role Phone Tavares Helm MD Primary Care Provider [phone] Genaro Brothers MD Unavailable Nadeem Jerry MD Unavailable [phone] Allergies Active Allergy Reactions Criticality Noted [...] mcg capsule 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 Active fenofibrate micronized (LOFIBRA) 200 mg capsule Take 200 mg by mouth daily before breakfast Active rosuvastatin (CRESTOR) 20 mg tablet Take 20 mg by mouth daily Active metoprolol tartrate (LOPRESSOR) 50 mg immediate release tablet Take 1 tablet (50 mg total) by mouth 2 (two) times a day 60 tablet 1 Active CINNAMON BARK-CHROMIUM PICOLIN ORALIndications :diabetes [...] Diagnosed Date Coronary artery disease invo lving [facility] without angina pectoris 11/21/2020 Overview (11/21/2020): Added automatically from request for surgery [id number] Social History Tobacco Use Types Packs/Day Years Used Date Smoking Tobacco: Every Day Cigarettes Smokeless Tobacco: Never Alcohol Use Standard Drinks/Week Comments Not Currently 0 (1 standard drink = 0.6 oz pur e alcohol) Sex and Gender Information Value Date Recorded Sex Assigned at Not on file 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 Gender Identity Not on file Sexual Orientation Not on file Last Filed Vital Signs Vital Sign Reading Time Taken Comments Blood Pressure 140/76 04/19/2021 12:28 PM CDT Pulse 78 04/19/2021 12:28 PM CDT Temperature 36.6 C (97.9 F) 01/11/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:56 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 Respiratory Rate 16 04/19/2021 12:28 PM CDT Oxygen Saturation 98% 04/19/2021 12:28 PM CDT Inhaled Oxygen Concentration - - Weight 111.6 kg (246 lb) 04/19/2021 12:28 PM CDT Height 185.4 cm (6' 1 ) 04/19/2021 12:28 PM CDT Body Mass Index 32.46 04/19/2021 12:28 PM CDT Plan of Treatment Not on file Medical Devices Implanted Type Area Gate Cutter Device Identifier Shelf Expiration Date Model / Serial / Lot [id number]-10/17/2020 Implanted:Qty: 1 on 10/17/2020 ICD Left: Chest Insurance [facility] H[facility]PPO Address: [place] [address] [facility] H[facility]/PPO Address: [place] [address] [employer] Advance Directives For more information, please contact: [phone] * Full Code (Latest Code Status on File) Date Activated Date Inactivated Comments 12/04/2020 5:33 PM 12/12/2020 4:23 PM Care Teams Inventory Taker Relationship Specialty Start Date End Date Tavares Helm MD PCP - General Internal Medicine 10/30/20 Genaro Brothers MD Consulting Physician Cardiovascular Disease 12/12/20 Nadeem Jerry MD Surgeon Cardiothoracic Surgery 12/12/20 "
[2025-03-24 10:19] VITALS: BP 140/82; PULSE 74; RESP 20; TEMP 36.4; O2SAT 97; BMI 26.6
[2025-03-24] MEDS: LACTATED RINGERS 1,000 ML 150 ML IV CONT (10:38)
--- NOTE | 2025-03-24 10:41 | P.PNAN_ITS ---
Anes - Initial Pre Proc Eval Procedure: Operation Date: 03/24/25 11:30 Proposed Procedures p Screening Colonoscopy - John Mueller MD Date/Time: 03/24/25 10:41 Surgeon: John Mueller MD Pre Op Diagnosis: Screening Patient Data Age: 70 Gender: M Height: 1.93 m Weight: 99.2 kg Last Vital Signs Temp 36.4 C 03/24/25 10:19 Pulse 74 03/24/25 10:19 Resp 20 03/24/25 10:19 BP 140/82 03/24/25 10:19 Pulse Ox 97 03/24/25 10:19 O2 Del Method Room Air 03/24/25 10:19 Allergies Allergy/AdvReac Type Severity Reaction Status Date / Time trazodone AdvReac lump Verified 03/24/25 10:17 Home Medications Medication Instructions Recorded Confirmed Type albuterol sulfate 90 mcg/actuation 2 puff inhalation QID PRN 05/10/24 03/10/25 Rx aerosol inhaler shortness of breath or wheezing #8.5 grams aspirin 81 mg chewable tablet 81 mg PO DAILY 03/10/25 03/24/25 History clopidogrel 75 mg tablet 75 mg PO DAILY 03/10/25 03/24/25 History coenzyme Q10 100 mg capsule (Co 200 mg PO DAILY 03/10/25 03/24/25 History Q-10) fenofibrate micronized 200 mg 200 mg PO DAILY 03/10/25 03/24/25 History capsule furosemide 40 mg tablet 40 mg PO DAILY 03/10/25 03/24/25 History levothyroxine 100 mcg tablet 100 mcg PO DAILY 03/10/25 03/24/25 History metoprolol tartrate 50 mg tablet 50 mg PO BID 03/10/25 03/24/25 History omega 3-qib-ycd-fish oil 1,000 mg 1 cap PO BID 03/10/25 03/24/25 History (120 mg-180 mg) capsule (Fish Oil) rosuvastatin 40 mg tablet 40 mg PO DAILY 03/10/25 03/24/25 History Patient hx anesthesia problems: none Family hx anesthesia problems: none Results Review: All pre-operative results and documents have been reviewed as part of the pre- operative evaluation. FOR[facility]LY [facility] Past Medical History Medical History (Updated 03/24/25 @ 10:42 by Milton Huffman MD) Pacemaker CAD (coronary artery disease) of artery bypass graft Surgical History Surgical History (Updated 03/24/25 @ 10:42 by Milton Huffman MD) Hx of CABG Social History Social History Years smoked: 57 Smoking status: Current every day smoker Substance use type: does not use Living arrangements: with family Spiritual care concerns: No Anes - Eval Final PreProcedure Day of Procedure 03/24/25 10:41 Patient weight: obese Heart: regular rate and rhythm (paced) Lungs: clear to auscultation Airway: Mallampati scale class II Neurological: alert and oriented Last oral intake: >/= 8 hours ASA classification: IV Emergent: no Anesthetic plan: proceed Anesthesia type and monitoring: general GIVS and standard monitoring Results Review: All pre-operative results and documents have been reviewed as part of the pre- operative evaluation. Informed Consent: The patient's anesthetic plan and its attendant risks and benefits were discussed with the patient/family/POA. Questions were solicited and answers provided to the satisfaction of the patient/family/POA.
[2025-03-24 10:42] LABS: Glucose Point of Care 104 mg/dl (65-105)
--- NOTE | 2025-03-24 10:53 | PM.IMHP ---
H&P: HPI History of Present Illness Date/Time: 03/24/25 10:53 Chief Complaint: Positive Cologuard test Narrative: This is the patient's sec colonoscopy. There are no GI symptoms and there is no family history of colorectal cancer. he was recently detected positive Cologuard. Review of Systems Review of Systems: All systems reviewed & are unremarkable except as noted in HPI and below PMFSH Past Medical History Medical History (Updated 03/24/25 @ 10:54 by John Mueller MD) Pacemaker CAD (coronary artery disease) of artery bypass graft Surgical History Surgical History (Updated 03/24/25 @ 10:42 by Milton Huffman MD) Hx of CABG Social History Social History Years smoked: 57 Smoking status: Current every day smoker Substance use type: does not use Living arrangements: with family Spiritual care concerns: No Meds Home Medications and Allergies Home Medications Medication Instructions Recorded Confirmed Type albuterol sulfate 90 mcg/actuation 2 puff inhalation QID PRN 05/10/24 03/10/25 Rx aerosol inhaler shortness of breath or wheezing #8.5 grams aspirin 81 mg chewable tablet 81 mg PO DAILY 03/10/25 03/24/25 History clopidogrel 75 mg tablet 75 mg PO DAILY 03/10/25 03/24/25 History coenzyme Q10 100 mg capsule (Co 200 mg PO DAILY 03/10/25 03/24/25 History Q-10) fenofibrate micronized 200 mg 200 mg PO DAILY 03/10/25 03/24/25 History capsule furosemide 40 mg tablet 40 mg PO DAILY 03/10/25 03/24/25 History levothyroxine 100 mcg tablet 100 mcg PO DAILY 03/10/25 03/24/25 History metoprolol tartrate 50 mg tablet 50 mg PO BID 03/10/25 03/24/25 History omega 2-faz-dki-fish oil 1,000 mg 1 cap PO BID 03/10/25 03/24/25 History (120 mg-180 mg) capsule (Fish Oil) rosuvastatin 40 mg tablet 40 mg PO DAILY 03/10/25 03/24/25 History Allergies Allergy/AdvReac Type Severity Reaction Status Date / Time trazodone AdvReac lump Verified 03/24/25 10:17 Vital Signs Vital Signs - 24 hr 03/24/25 10:19 Temperature 97.6 F Pulse Rate 74 Respiratory Rate 20 Blood Pressure 140/82 Pulse Oximetry 97 Oxygen Delivery Room Air Exam Const: General: cooperative and healthy appearing Resp: Effort & Inspection: normal respiratory effort and able to speak in complete sentences Auscultation: clear to auscultation bilaterally Cardio: Rate: regular rate Rhythm: regular rhythm GI: Inspection: normal to inspection GI Palp: No No hepatosplenomegaly present Auscultation: normal bowel sounds Rectal Exam: deferred Skin: General skin exam: normal color Psych: Appearance: grossly normal Mental Status: mental status grossly normal Assessment and Plan Assessment and plan (1) Positive colorectal cancer screening using Cologuard test: Code(s): R19.5 - Other fecal abnormalities Status: Acute Assessment and Plan: The patient is deemed a good candidate for the procedure. Consent signed. Will proceed.
[2025-03-24] MEDS: SIMETHICONE ORAL SUSPENSION 20 MG/0.3 ML 30 ML BOTTLE 0.6 ML IRRIGATION (11:04)
[2025-03-24 11:20] VITALS: BP 144/86; PULSE 68; RESP 27; O2SAT 97
[2025-03-24 11:30] VITALS: BP 145/87; PULSE 66; RESP 23; O2SAT 97
--- NOTE | 2025-03-24 11:36 | SUR.PHASEII ---
Instructed pt. to resume Plavix today per Dr. Mueller. Pt. verbalized understanding.
[2025-03-24 11:40] VITALS: BP 150/97; PULSE 79; RESP 19; O2SAT 97
== END 2025-03-24 11:52 | disposition home or self-care (01) ==
PROVIDERS: PCP Internal Medicine; Referring Provider Internal Medicine Cardiovascular Disease; Visit Provider Internal Medicine Gastroenterology
PROC: 0DJD8ZZ Inspection of Lower Intestinal Tract, Via Natural or Artificial Opening Endoscopic (ICD-10-PCS; CPT 45378; principal; 2025-03-24 11:30)
DX: D12.5 Benign neoplasm of sigmoid colon (principal); D12.2 Benign neoplasm of ascending colon; D12.3 Benign neoplasm of transverse colon; K57.30 Diverticulosis of large intestine without perforation or abscess without bleeding; I25.10 Atherosclerotic heart disease of native coronary artery without angina pectoris; F17.210 Nicotine dependence, cigarettes, uncomplicated; E66.9 Obesity, unspecified; Z68.26 Body mass index [BMI] 26.0-26.9, adult; Z79.51 Long term (current) use of inhaled steroids; Z79.82 Long term (current) use of aspirin; Z79.02 Long term (current) use of antithrombotics/antiplatelets; Z95.0 Presence of cardiac pacemaker; Z95.1 Presence of aortocoronary bypass graft
CPT/HCPCS: 45385; 82948; 88305; J2003; J2704; J7120